=== PATIENT | male | born 1975 | race Caucasian/White ===

== ENCOUNTER 2017-11-19 17:10 | Emergency (ER) | payer SELFPAY ==
[~2017-11-19] VITALS: Ht 170.2 cm; Wt 67.0 kg
[~2017-11-19 17:10] MED LIST: LORA10TA PO
[2017-11-19 17:32] VITALS: BP 176/85; PULSE 92; RESP 18; TEMP 98.2; O2SAT 99
--- NOTE | 2017-11-19 20:17 | PD ---
HPI Chief Complaint: GI Complaint Time Seen by Provider: 20:17 Travel History International Travel<30 days: No Contact w/Intl Traveler<30days: No Traveled to known affect area: No History of Present Illness HPI 42-year-old male came to the emergency room with history of various complaints in the form of abdominal pain mostly localized periumbilical, headache that he described mostly on the top of the head, nausea and vomiting and loss of appetite and diarrhea for past 3 weeks. Patient says that he has been under a lot of stress but he has been under stress before and has not had these symptoms. He has lost about 10-15 pounds. He went to see his primary care today who ordered blood tests which was done but patient does not know the results. However since the symptoms continued his primary care asked him to come to the emergency room. No aggravating or relieving factors identified to the pain. Patient says currently the headache is 10 out of 10 and throbbing. The abdominal pain is 9 out of 10 and nonradiating. Vital signs are mainly stable. Patient has had a gender transformation surgery done a few years ago and currently on testosterone shots. Patient denies drinking alcohol, smoking cigarettes or illegal substance. He says he occasionally smokes weed made to calm the nausea down. PFSH Past Medical History Narrative Medical List of his past medical, surgical, social and family history reviewed from the nursing note. Social History Tobacco Use: Yes Allergies-Medications (Allergen,Severity, Reaction): Coded Allergies: acetaminophen (Unverified Allergy, Severe, Nausea/Vomiting, 11/19/17) hydrocodone (Unverified Allergy, Severe, Nausea/Vomiting, 11/19/17) Uncoded Allergies: onions (Allergy, Severe, Nausea/Vomiting, 02/16/14) Comments List of his allergies reviewed from the nursing Reported Meds & Prescriptions Reported Meds & Active Scripts Active Zofran Odt (Ondansetron Odt) 4 Mg Tab 4 Mg SL Q6HR PRN Macrobid (Nitrofurantoin Monohydrate Macrocrystals) 100 Mg Capsule 100 Mg PO BID 10 Days Reported Depo-Testosterone Inj (Testosterone Cypionate) 200 Mg/Ml Inj 1 Ml IM THURSDAY Narrative Medication List of his home medications reviewed from the nursing note Review of Systems Except as stated in HPI: all other systems reviewed are Neg General / Constitutional: Positive: Weight Loss Gastrointestinal: Positive: Nausea, Vomiting, Abdominal Pain Neurologic: Positive: Headache Physical Exam Narrative GENERAL: Awake, alert, anxious, moderate distress SKIN: Focused skin assessment warm/dry. HEAD: Atraumatic. Normocephalic. EYES: Pupils equal and round. No scleral icterus. No injection or drainage. ENT: No nasal bleeding or discharge. Mucous membranes pink and moist. NECK: Trachea midline. No JVD. CARDIOVASCULAR: Regular rate and rhythm. No murmur appreciated. RESPIRATORY: No accessory muscle use. Clear to auscultation. Breath sounds equal bilaterally. GASTROINTESTINAL: Abdomen soft, non-tender, nondistended. Hepatic and splenic margins not palpable. MUSCULOSKELETAL: No obvious deformities. No clubbing. No cyanosis. No edema. NEUROLOGICAL: Awake and alert. No obvious cranial nerve deficits. Motor grossly within normal limits. Normal speech. PSYCHIATRIC: Appropriate mood and affect; insight and judgment normal. Data Data Last Documented VS Orders Orders Complete Blood Count With Diff (11/19/17 20:30) Comprehensive Metabolic Panel (11/19/17 20:30) Urinalysis - C+S If Indicated (11/19/17 20:30) Iv Access Insert/Monitor (11/19/17 20:30) Ecg Monitoring (11/19/17 20:30) Oximetry (11/19/17 20:30) Pantoprazole Inj (Protonix Inj) (11/19/17 20:30) Sodium Chlor 0.9% 1000 Ml Inj (Ns 1000 M (11/19/17 20:30) Sodium Chloride 0.9% Flush (Ns Flush) (11/19/17 20:30) Electrocardiogram (11/19/17 20:30) Ketorolac Inj (Toradol Inj) (11/19/17 20:30) Metoclopramide Inj (Reglan Inj) (11/19/17 20:30) Thyroid Stimulating Hormone (11/19/17 20:30) Oral Contrast - Adult (11/19/17 20:42) Diatrizoate Liq ( Gastroview Liq) (11/19/17 21:20) Urine Culture (11/19/17 21:20) Potassium Chloride Eff (K-Lyte Cl Eff) (11/19/17 22:45) Nitrofurantoin Monohyd Macrocr (Macrobid (11/19/17 22:45) Ct Brain W/O Iv Contrast(Rout) (11/20/17 ) Ct Abd/Pel W Iv Contrast(Rout) (11/20/17 20:30) Ed Discharge Order (11/20/17 01:20) Ondansetron Odt (Zofran Odt) (11/20/17 01:45) Iohexol 350 Inj (Omnipaque 350 Inj) (11/19/17 22:30) Labs Laboratory Tests Test 11/19/17 21:20 11/19/17 21:35 Urine Color Tiffany Urine Turbidity HAZY Urine pH 5.0 Urine Specific [place] 1.031 Urine Protein 30 mg/dL Urine Glucose (UA) NEG mg/dL Urine Ketones 20 mg/dL Urine Occult Blood NEG Urine Nitrite NEG Urine Bilirubin NEG Urine Urobilinogen 2.0 mg/dL Urine Leukocyte Esterase MOD Urine RBC LESS THAN 1 /hpf Urine WBC 32 /hpf Urine Squamous Epithelial Cells 1 /hpf Urine Bacteria OCC /hpf Urine Mucus FEW /lpf Microscopic Urinalysis Comment CULTURE INDICATED White Blood Count 8.7 TH/MM3 Red Blood Count 5.29 MIL/MM3 Hemoglobin 16.5 GM/DL Hematocrit 49.6 % Mean Corpuscular Volume 93.7 FL Mean Corpuscular Hemoglobin 31.2 PG Mean Corpuscular Hemoglobin Concent 33.3 % Red Cell Distribution Width 13.3 % Platelet Count 171 TH/MM3 Mean Platelet Volume 9.8 FL Neutrophils (%) (Auto) 63.4 % Lymphocytes (%) (Auto) 26.9 % Monocytes (%) (Auto) 8.4 % Eosinophils (%) (Auto) 0.9 % Basophils (%) (Auto) 0.4 % Neutrophils # (Auto) 5.5 TH/MM3 Lymphocytes # (Auto) 2.4 TH/MM3 Monocytes # (Auto) 0.7 TH/MM3 Eosinophils # (Auto) 0.1 TH/MM3 Basophils # (Auto) 0.0 TH/MM3 CBC Comment DIFF FINAL Differential Comment Blood Urea Nitrogen 16 MG/DL Creatinine 1.16 MG/DL Random Glucose 79 MG/DL Total Protein 7.8 GM/DL Albumin 4.3 GM/DL Calcium Level 9.1 MG/DL Alkaline Phosphatase 79 U/L Aspartate Amino Transf (AST/SGOT) 20 U/L Alanine Aminotransferase (ALT/SGPT) 24 U/L Total Bilirubin 2.1 MG/DL Sodium Level 141 MEQ/L Potassium Level 3.3 MEQ/L Chloride Level 106 MEQ/L Carbon Dioxide Level 24.6 MEQ/L Anion Gap 10 MEQ/L Estimat Glomerular Filtration Rate 68 ML/MIN Thyroid Stimulating Hormone 3rd Gen 1.500 uIU/ML MDM Medical Decision Making Medical Screen Exam Complete: Yes Emergency Medical Condition: Yes Medical Record Reviewed: Yes Differential Diagnosis Intracranial mass, intracranial bleed, intra-abdominal mass, electrolyte abnormality, dehydration Narrative Course 9:46 PM awaiting for the blood test and the CAT scan to be done and resulted. Patient has been given medication for pain and nausea. 10:40 PM blood test results show slightly elevated bilirubin and hyponatremia. Have ordered for potassium replacement. UA is positive and I have given him a dose of Macrobid. Awaiting for the CAT scan to be done and resulted. 11:49 PM still waiting for the CAT scan to be done and resulted. 12:[address] to be done and resulted. Case has been signed over to the PA to follow-up on the CT. CT is negative patient can be discharged home with a prescription for antibiotic for UTI. Procedures EKG Prior to Arrival: No Scripts Ondansetron Odt (Zofran Odt) 4 Mg Tab 4 MG SL Q6HR Y for Nausea/Vomiting, #4 TAB 0 Refills Prov: Elsie Bhatt MD 11/20/17 Nitrofurantoin Monohydrate Macrocrystals (Macrobid) 100 Mg Capsule 100 MG PO BID for Infection for 10 Days, #20 CAP 0 Refills Prov: Elsie Bhatt MD 11/20/17 Elsie Bhatt MD Nov 19, 2017 20:17
[2017-11-19] MEDS ORDERED: SODIUM CHLORIDE 0.9% FLUSH 10 ML FLUSH IV FLUSH PRN (20:30)
[2017-11-19] MEDS ORDERED: SODIUM CHLOR 0.9% 1000 ML INJ 1,000 ML IV SCH (20:30)
[2017-11-19] MEDS ORDERED: PANTOPRAZOLE SODIUM 40 MG VIAL IVP ONE (20:30)
[2017-11-19] MEDS ORDERED: KETOROLAC TROMETHAMINE 30 MG/ML (IVP) VIAL IVP ONE (20:30)
[2017-11-19] MEDS ORDERED: METOCLOPRAMIDE HCL 10 MG/2 ML VIAL IV PUSH ONE (20:30)
[2017-11-19] MEDS ORDERED: DIATRIZOATE MEGLUM/DIATRIZOATE SOD 9 ML CUP ONE (21:20)
[2017-11-19 21:42] VITALS: PULSE 62; RESP 20; O2SAT 100
[2017-11-19] MEDS ORDERED: TEST1INJ9 IM (21:51)
[2017-11-19 22:00] VITALS: BP 134/73; PULSE 66; RESP 18; O2SAT 100
[2017-11-19 22:12] LABS: AUTOMATED NEUTROPHIL # 5.5 TH/MM3 (1.8-7.7); BASOPHIL % 0.4 % (0.0-2.0); EOSINOPHIL # 0.1 TH/MM3 (0-0.4); EOSINOPHIL % 0.9 % (0.0-4.0); HEMATOCRIT 49.6 % (39.0-51.0); HEMOGLOBIN 16.5 GM/DL (13.0-17.0); LYMPH % 26.9 % (9.0-44.0); LYMPHOCYTE # 2.4 TH/MM3 (1.0-4.8); MEAN CELL VOLUME 93.7 FL (80.0-100.0); MEAN CORPUSCULAR HEMOGLOBIN 31.2 PG (27.0-34.0); MEAN CORPUSCULAR HGB CONC 33.3 % (32.0-36.0); MEAN PLATELET VOLUME 9.8 FL (7.0-11.0); MONO % 8.4 % (0.0-8.0); MONOCYTE # 0.7 TH/MM3 (0-0.9); NEUT % 63.4 % (16.0-70.0); PLATELET COUNT 171 TH/MM3 (150-450); RED BLOOD COUNT 5.29 MIL/MM3 (4.50-5.90); RED CELL DISTRIBUTION WIDTH 13.3 % (11.6-17.2); WHITE BLOOD COUNT 8.7 TH/MM3 (4.0-11.0)
[2017-11-19 22:17] LABS: BACTERIA, URINE OCC /hpf; BILIRUBIN, URINE NEG (NEG); BLOOD, URINE NEG (NEG); GLUCOSE,URINE NEG (NEG); KETONE, URINE 20 mg/dL (NEG); MUCUS URINE FEW /lpf (OCC); NITRITE,URINE NEG (NEG); SQUAMOUS EPITHELIAL CELL URINE 1 /hpf (0-5); URINE COLOR Amber (YELLW/STRAW); URINE LEUKOCYTE ESTERASE MOD (NEG)
[2017-11-19 22:28] LABS: ALBUMIN 4.3 GM/DL (3.4-5.0); AST (GOT) 20 U/L (15-37); BICARBONATE 24.6 MEQ/L (21.0-32.0); BLOOD UREA NITROGEN 16 MG/DL (7-18); CALCIUM 9.1 MG/DL (8.5-10.1); CHLORIDE 106 MEQ/L (98-107); CREATININE 1.16 MG/DL (0.60-1.30); GLOMERULAR FILTRATION RATE 68 ML/MIN (>89); GLUCOSE,RANDOM 79 MG/DL (74-106); SODIUM (NA) 141 MEQ/L (136-145)
[2017-11-19 22:29] LABS: ALT (GPT) 24 U/L (12-78)
[2017-11-19] MEDS ORDERED: IOHEXOL 350 MG/ML 10 ML VIAL (for RAD DIAG) IVCONTRAST ONE (22:30)
[2017-11-19 22:38] LABS: ALKALINE PHOSPHATASE 79 U/L (45-117); TOTAL BILIRUBIN ADULT 2.1 MG/DL (0.2-1.0); TOTAL PROTEIN 7.8 GM/DL (6.4-8.2)
[2017-11-19] MEDS ORDERED: NITROFURANTOIN MONOHYD MACROCR 100 MG CAP PO ONE (22:45)
[2017-11-19] MEDS ORDERED: POTASSIUM CHLORIDE 25 MEQ EFFERVESCENT TAB PO ONE (22:45)
--- NOTE | 2017-11-20 01:03 | RADRPT ---
EXAM DATE: 11/20/2017 12:49 AM EDT AGE/SEX: 42 years / Male INDICATIONS: Cephalgia. CLINICAL DATA: This is the patient's initial encounter. Patient reports that signs and symptoms have been present for 3 weeks and indicates a pain score of 10/10. MEDICAL/SURGICAL HISTORY: None. None. RADIATION DOSE: 56.35 CTDI (mGy) COMPARISON: No prior exams available for comparison. TECHNIQUE: CT of the head without contrast. Using automated exposure control and adjustment of the mA and/or kV according to patient size, radiation dose was kept as low as reasonably achievable to ob tain optimal diagnostic quality images. DICOM format image data is available electronically for revi ew and comparison. FINDINGS: Cerebrum: The ventricles are normal for age. No evidence of midline shift, mass lesion, hemorrhage or acute infarction. No extraaxial fluid collections are seen. Posterior Fossa: The cerebellum and brainstem are intact. The 4th ventricle is midline. The cerebe llopontine angle is unremarkable. Extracranial: The visualized portion of the orbits is intact. Skull: The calvaria is intact. No evidence of skull fracture. CONCLUSION: 1. Negative noncontrast head CT. Electronically signed by: Trev Leonardo MD 11/20/2017 1:02 AM EDT
--- NOTE | 2017-11-20 01:14 | RADRPT ---
EXAM DATE: 11/20/2017 12:55 AM EDT AGE/SEX: 42 years / Male INDICATIONS: Abdominal pain, nausea, vomiting and weight loss. CLINICAL DATA: This is the patient's initial encounter. Patient reports that signs and symptoms have been present for 3 weeks and indicates a pain score of 9/10. MEDICAL/SURGICAL HISTORY: None. . Gender reassignment surgery. ORAL CONTRAST: Prescribed oral contrast ingested. RADIATION DOSE: 5.22 CTDI (mGy) COMPARISON: No prior exams available for comparison. TECHNIQUE: Multiple contiguous axial images were obtained through the abdomen and pelvis following b olus infusion of 100 ml Omnipaque 350 (iohexol) nonionic water-soluble contrast as a single exam do se. Prescribed oral contrast ingested. Using automated exposure control and adjustment of the mA and /or kV according to patient size, radiation dose was kept as low as reasonably achievable to obtain o ptimal diagnostic quality images. DICOM format image data is available electronically for review and comparison. FINDINGS: Lower Lungs: The visualized lower lungs are clear. Liver: The liver has a homogeneous density without space-occupying lesion. There is no dilation of th e biliary tree. Spleen: Homogeneous density without enlargement. Pancreas: Unremarkable without mass or calcification. Kidneys: Normal in size and shape. No evidence of mass or hydronephrosis. Adrenal Glands: Unremarkable. Aorta: The aorta and proximal iliac vessels are grossly unremarkable without aneurysmal dilation. Bowel/Mesentery: The bowel loops are grossly unremarkable. The cecum and sigmoid colon have a normal configuration. Abdominal Wall: Intact. Retroperitoneum: No evidence of adenopathy in the retrocrural, para-aortic, or deep pelvic regions. Bladder: Contours are smooth. Reproductive Organs: No abnormal masses or calcifications seen. Inguinal: The inguinal region is unremarkable without evidence of adenopathy. Bony Structures: Unremarkable. CONCLUSION: 1. Unremarkable examination. Electronically signed by: Trev Leonardo MD 11/20/2017 1:12 AM EDT
[2017-11-20] MEDS ORDERED: MACR100C2 PO (01:21)
[2017-11-20] MEDS ORDERED: ZOFR4TAB3 SL (01:21)
[2017-11-20 01:24] VITALS: BP 132/66
--- NOTE | 2017-11-20 01:25 | PD ---
Physical Exam Date Seen by Provider: Nov 20, 2017 Time Seen by Provider: 01:22 Narrative GENERAL: This is a well-nourished, well-developed patient, in no apparent distress. SKIN: No rashes, ecchymoses or lesions. Warm and dry. HEAD: Atraumatic. Normocephalic. EYES: PERRL, EOMI, no discharge or injection. No scleral icterus. EARS: Clear NOSE: Nasal turbinates appear normal. THROAT: Mucosa pink and moist. Airway patent. NECK: Trachea midline. supple, moves head freely. LUNGS: Clear to auscultation. CV: Regular in rhythm. ABDOMEN: Soft nontender. EXT: No clubbing cyanosis or edema. Data Data Last Documented VS Vital Signs Date Time Temp Pulse Resp B/P (MAP) Pulse Ox O2 Delivery O2 Flow Rate FiO2 11/19/17 22:00 66 18 134/73 (93) 100 Room Air 11/19/17 17:32 98.2 Orders Orders Complete Blood Count With Diff (11/19/17 20:30) Comprehensive Metabolic Panel (11/19/17 20:30) Urinalysis - C+S If Indicated (11/19/17 20:30) Iv Access Insert/Monitor (11/19/17 20:30) Ecg Monitoring (11/19/17 20:30) Oximetry (11/19/17 20:30) Pantoprazole Inj (Protonix Inj) (11/19/17 20:30) Sodium Chlor 0.9% 1000 Ml Inj (Ns 1000 M (11/19/17 20:30) Sodium Chloride 0.9% Flush (Ns Flush) (11/19/17 20:30) Electrocardiogram (11/19/17 20:30) Ketorolac Inj (Toradol Inj) (11/19/17 20:30) Metoclopramide Inj (Reglan Inj) (11/19/17 20:30) Thyroid Stimulating Hormone (11/19/17 20:30) Oral Contrast - Adult (11/19/17 20:42) Diatrizoate Liq ( Gastroview Liq) (11/19/17 21:20) Urine Culture (11/19/17 21:20) Potassium Chloride Eff (K-Lyte Cl Eff) (11/19/17 22:45) Nitrofurantoin Monohyd Macrocr (Macrobid (11/19/17 22:45) Ct Brain W/O Iv Contrast(Rout) (11/20/17 ) Ct Abd/Pel W Iv Contrast(Rout) (11/20/17 20:30) Ed Discharge Order (11/20/17 01:20) Labs Laboratory Tests Test 11/19/17 21:20 11/19/17 21:35 Urine Color Tiffany Urine Turbidity HAZY Urine pH 5.0 Urine Specific [place] 1.031 Urine Protein 30 mg/dL Urine Glucose (UA) NEG mg/dL Urine Ketones 20 mg/dL Urine Occult Blood NEG Urine Nitrite NEG Urine Bilirubin NEG Urine Urobilinogen 2.0 mg/dL Urine Leukocyte Esterase MOD Urine RBC LESS THAN 1 /hpf Urine WBC 32 /hpf Urine Squamous Epithelial Cells 1 /hpf Urine Bacteria OCC /hpf Urine Mucus FEW /lpf Microscopic Urinalysis Comment CULTURE INDICATED White Blood Count 8.7 TH/MM3 Red Blood Count 5.29 MIL/MM3 Hemoglobin 16.5 GM/DL Hematocrit 49.6 % Mean Corpuscular Volume 93.7 FL Mean Corpuscular Hemoglobin 31.2 PG Mean Corpuscular Hemoglobin Concent 33.3 % Red Cell Distribution Width 13.3 % Platelet Count 171 TH/MM3 Mean Platelet Volume 9.8 FL Neutrophils (%) (Auto) 63.4 % Lymphocytes (%) (Auto) 26.9 % Monocytes (%) (Auto) 8.4 % Eosinophils (%) (Auto) 0.9 % Basophils (%) (Auto) 0.4 % Neutrophils # (Auto) 5.5 TH/MM3 Lymphocytes # (Auto) 2.4 TH/MM3 Monocytes # (Auto) 0.7 TH/MM3 Eosinophils # (Auto) 0.1 TH/MM3 Basophils # (Auto) 0.0 TH/MM3 CBC Comment DIFF FINAL Differential Comment Blood Urea Nitrogen 16 MG/DL Creatinine 1.16 MG/DL Random Glucose 79 MG/DL Total Protein 7.8 GM/DL Albumin 4.3 GM/DL Calcium Level 9.1 MG/DL Alkaline Phosphatase 79 U/L Aspartate Amino Transf (AST/SGOT) 20 U/L Alanine Aminotransferase (ALT/SGPT) 24 U/L Total Bilirubin 2.1 MG/DL Sodium Level 141 MEQ/L Potassium Level 3.3 MEQ/L Chloride Level 106 MEQ/L Carbon Dioxide Level 24.6 MEQ/L Anion Gap 10 MEQ/L Estimat Glomerular Filtration Rate 68 ML/MIN Thyroid Stimulating Hormone 3rd Gen 1.500 uIU/ML [facility] Medical Record Reviewed: Yes Supervised Visit with KATELYN: Yes Interpretation(s) CBC & BMP Diagram 11/19/17 21:35 Total Protein 7.8, Albumin 4.3, Calcium Level 9.1, Alkaline Phosphatase 79, Aspartate Amino Transf (AST/SGOT) 20, Alanine Aminotransferase (ALT/SGPT) 24, Total Bilirubin 2.1 H Last 24 hours Impressions Abdomen/Pelvis CT 11/20/17 2030 Signed Impressions: CONCLUSION: 1. Unremarkable examination. Head CT 11/20/17 0000 Signed Impressions: CONCLUSION: 1. Negative noncontrast head CT. Differential Diagnosis . Narrative Course Patient's laboratory tests have been reviewed. Patient has a urinary tract infection. He had been given Macrobid 100 mg p.o. earlier. The patient will be discharged home on Macrobid for 10 days along with Zofran as needed for nausea. He is aware that if symptoms worsen he may return to the ER. Patient will follow-up with a primary care doctor as an outpatient in the next few days. This is UTI, abdominal pain Diagnosis Primary Impression: UTI Additional Impression: Abdominal pain Patient Instructions: General Instructions Additional Instruction: Rest. Force fluids. Macrobid. Zofran as needed for nausea. Follow-up with your medical doctor in the next 2-3 days. Return to the ER if symptoms worsen or problems develop. Med/Other Pt SpecificInfo: Prescription(s) given Scripts Ondansetron Odt (Zofran Odt) 4 Mg Tab 4 MG SL Q6HR Y for Nausea/Vomiting, #4 TAB 0 Refills Prov: Elsie Bhatt MD 11/20/17 Nitrofurantoin Monohydrate Macrocrystals (Macrobid) 100 Mg Capsule 100 MG PO BID for Infection for 10 Days, #20 CAP 0 Refills Prov: Elsie Bhatt MD 11/20/17 Disposition: 01 DISCHARGE HOME Condition: Stable Rodger Miranda Navdeep MARTINEZ Nov 20, 2017 01:25
[2017-11-20] MEDS ORDERED: ONDANSETRON ODT 4 MG TAB PO ONE (01:45)
--- NOTE | 2017-11-20 09:13 | EKG ---
Date Performed: 11/19/2017 Time Performed: 21:09:14 PTAGE: 42 years EKG: Sinus rhythm WITH MARKED SINUS ARRHYTHMIA INCOMPLETE RIGHT BUNDLE BRANCH BLOCK BORDERLINE ECG NO PREVIOUS TRACING DOCTOR: Lan Vargas Interpretating Date/Time 11/20/2017 09:12:59
== END 2017-11-20 01:35 | disposition home or self-care (01) ==
LOC: NEPD 17:10
DX: N39.0 Urinary tract infection, site not specified (principal); R10.33 Periumbilical pain; R63.4 Abnormal weight loss; I49.9 Cardiac arrhythmia, unspecified; I45.10 Unspecified right bundle-branch block; Z79.899 Other long term (current) drug therapy; Z88.6 Allergy status to analgesic agent; Z88.5 Allergy status to narcotic agent; Z72.0 Tobacco use
CPT/HCPCS: 70450; 74177; 80053; 81001; 84443; 85025; 87086; 93005; 96361; 96374; 96375; 99285; C9113; J1885; J2765; J7030; Q9963; Q9967